=== PATIENT | female | born 1975 | race Two or more races ===

== ENCOUNTER 2023-09-19 13:26 | Emergency (ER) | payer OTHER ==
[~2023-09-19] VITALS: Ht 170.2 cm; Wt 80.7 kg
[2023-09-19] MEDS ORDERED: SYNTHROID175 MCG (13:37)
== END 2023-09-19 16:24 | disposition home or self-care (01) ==
LOC: ER 13:26 → EDBD 14:14 → ER 16:24
DX: S50.312A Abrasion of left elbow, initial encounter (principal); M25.562 Pain in left knee; W18.39XA Other fall on same level, initial encounter; Y93.89 Activity, other specified; Y92.018 Other place in single-family (private) house as the place of occurrence of the external cause